=== PATIENT | female | born 1940 | race Caucasian/White ===

== ENCOUNTER 2018-08-11 15:58 | Inpatient (IN) | payer MEDICARE, OTHER ==
[2018-08-11] MEDS: CEFEPIME 2GM/50 ML (PMX) 50 ML IVPB (16:04)
[2018-08-11 16:27] LABS: ABNORMAL IP MESSAGE 1; HEMATOCRIT 24.9 % (37.0-47.0); HEMOGLOBIN 7.4 g/dl (12.0-16.0); MEAN CORPUSCULAR HEMOGLOBIN 26.8 pg (29.0-33.0); MEAN CORPUSCULAR HGB CONC 29.7 g/dl (32.0-37.0); MEAN CORPUSCULAR VOLUME 90.2 fl (82.0-101.0); MEAN PLATELET VOLUME 9.4 fl (7.4-10.4); NUCLEATED RED BLOOD CELLS% 0.1 /100WBC (0.0-0.0); PLATELET COUNT 242 10^3/UL (140-415); RED BLOOD COUNT 2.76 10^6/ul (4.20-5.40); RED CELL DISTRIBUTION WIDTH 18.6 % (11.5-14.5)
[2018-08-11 16:27] LABS: WHITE BLOOD COUNT 32.6 10^3/ul (4.8-10.8)
[2018-08-11 16:35] LABS: ADD MAN DIFF? YES; PATH REVIEW? YES; POSITIVE DIFF @See below
[2018-08-11 16:46] LABS: ANION GAP 8 (5-13); BLOOD UREA NITROGEN 24 mg/dl (7-20); CALCIUM 7.6 mg/dl (8.4-10.2); CARBON DIOXIDE 28 mmol/L (21-31); CHLORIDE 99 mmol/L (97-110); CREATININE 2.81 mg/dl (0.44-1.00); GLUCOSE 332 mg/dl (70-220); INR 1.08; PROTIME 14.1 Sec (11.9-14.9); PT RATIO 1.1; SODIUM 135 mmol/L (135-144)
[2018-08-11 16:47] LABS: PARTIAL THROMBOPLASTIN TIME 26.4 Sec (23.0-35.0)
[2018-08-11 16:47] LABS: LACTIC ACID 1.2 mmol/L (0.5-2.0)
[2018-08-11 16:49] LABS: AMMONIA < 9 umol/l (9-30)
[2018-08-11 17:12] LABS: TROPONIN-I 0.122 ng/ml (0.000-0.120)
[2018-08-11] MEDS: VANCOMYCIN 1 GM (PMX) 250 ML IVPB (17:16)
[2018-08-11 17:27] LABS: ADD UMIC YES; UR ASCORBIC ACID NEGATIVE (NEGATIVE); UR BACTERIA MANY /HPF (NONE SEEN); UR BILIRUBIN (Dip) NEGATIVE (NEGATIVE); UR BLOOD (Dip) 1+ mg/dL (NEGATIVE); UR CLARITY TURBID (CLEAR); UR COLOR YELLOW (YELLOW); UR GLUCOSE (Dip) NEGATIVE (NEGATIVE); UR KETONES (Dip) TRACE mg/dL (NEGATIVE); UR LEUKOCYTE ESTERASE (Dip) 2+ Leu/ul (NEGATIVE); UR NITRITE (Dip) NEGATIVE (NEGATIVE); UR RBC 10 /HPF (0-5); UR SPECIFIC GRAVITY (Dip) 1.023 (1.003-1.030); UR TOTAL PROTEIN (Dip) 2+ mg/dl (NEGATIVE); UR UROBILINOGEN (Dip) NEGATIVE (NEGATIVE); UR WBC > 182 /HPF (0-5)
[2018-08-11] MEDS ORDERED: ACETAMINOPHEN 325 MG TAB PO ×2 (17:30→18:00)
[2018-08-11] MEDS ORDERED: ONDANSETRON 4 MG INJ IV ×2 (17:30→18:00)
[2018-08-11 17:35] LABS: UR NONSQUAMOUS EPITHELIAL CELL 9 /HPF (NONE SEEN)
[2018-08-11] MEDS ORDERED: morphine 2 MG INJ IV (18:00)
[2018-08-11] MEDS ORDERED: ZOLPIDEM 5 MG TAB PO (18:00)
[2018-08-11] MEDS ORDERED: HYDROCODONE/APAP (5/325) TAB PO (18:00)
[2018-08-11] MEDS ORDERED: NACL 0.9% 3 ML SYG IV (18:00)
[2018-08-11 18:07] LABS: ANISOCYTOSIS 1+ (0-0); BAND NEUTROPHILS #M 2.2 10^3/ul (0.0-0.6); BAND NEUTROPHILS % (M) 7 % (0-4); HYPOCHROMASIA 1+ (0-0); LYMPHOCYTES #M 1.3 10^3/ul (0.8-2.9); LYMPHOCYTES % (M) 4 % (15-51); PLATELET ESTIMATE NORMAL; POIKILOCYTOSIS 1+ (0-0); POLYCHROMASIA 3+ (0-0); SEG NEUT #M 29.7 10^3/ul (1.6-7.5); SEGMENTED NEUTROPHILS (M) % 89 % (39-77); SMUDGE%M 1 % (0-0)
[2018-08-11] MEDS: ASPIRIN 300 MG SUPP PR (18:07)
[2018-08-11] MEDS: CEFTRIAXONE 1 GM/50 ML (PMX) 50 ML IVPB (19:31)
[2018-08-11] MEDS: SOD CHLORIDE 0.9% 1,000 ML IV (19:31)
[2018-08-11] MEDS: INSULIN ASPART [NOVOLOG] 3 ML PEN SC ×3 (20:36→21:17)
[2018-08-11] MEDS: INSULIN GLARGINE [LANTus] (100 UNITS/ML) SYG SC (21:16)
[2018-08-11] MEDS: ATORVASTATIN 80 MG TAB PO (21:22)
[2018-08-11] MEDS: POTASSIUM CHLORIDE (SR) 20 MEQ TAB PO (21:22)
[2018-08-11] MEDS: LACTULOSE 30ML CUP PO (21:22)
[2018-08-11] MEDS: POLYETHYLENE GLYCOL 17 GM PACKET PO (21:22)
[2018-08-11 22:50] LABS: LACTIC ACID 3.6 mmol/L (0.5-2.0)
[2018-08-11] MEDS: SOD CHLORIDE 0.9% 500 ML IV (23:11)
[2018-08-12 00:39] LABS: TROPONIN-I 0.114 ng/ml (0.000-0.120)
[2018-08-12] MEDS: ACCU-CHEK XX (02:03)
[2018-08-12] MEDS: LEVOTHYROXINE 50 MCG TAB PO (06:06)
[2018-08-12] MEDS: PANTOPRAZOLE (EC) 40 MG TAB PO (06:06)
[2018-08-12 06:13] LABS: ABNORMAL IP MESSAGE 1; HEMATOCRIT 22.6 % (37.0-47.0); MEAN CORPUSCULAR HEMOGLOBIN 26.4 pg (29.0-33.0); MEAN CORPUSCULAR HGB CONC 29.6 g/dl (32.0-37.0); MEAN PLATELET VOLUME 9.7 fl (7.4-10.4); NUCLEATED RED BLOOD CELLS% 0.1 /100WBC (0.0-0.0); PLATELET COUNT 255 10^3/UL (140-415); RED BLOOD COUNT 2.54 10^6/ul (4.20-5.40); RED CELL DISTRIBUTION WIDTH 18.1 % (11.5-14.5)
[2018-08-12 06:13] LABS: WHITE BLOOD COUNT 24.4 10^3/ul (4.8-10.8)
[2018-08-12 06:23] LABS: POSITIVE DIFF @See below
[2018-08-12 06:25] LABS: ADD MAN DIFF? YES; HEMOGLOBIN 6.7 g/dl (12.0-16.0)
[2018-08-12 06:48] LABS: LACTIC ACID 1.2 mmol/L (0.5-2.0)
[2018-08-12 06:50] LABS: ALANINE AMINOTRANSFERASE 12 IU/L (13-69); ALBUMIN 1.8 g/dl (3.3-4.9); ALKALINE PHOSPHATASE 110 IU/L (42-121); ANION GAP 7 (5-13); ASPARTATE AMINO TRANSFERASE 19 IU/L (15-46); BILIRUBIN,INDIRECT 0.1 mg/dl (0-1.1); BILIRUBIN,TOTAL 0.1 mg/dl (0.2-1.3); BLOOD UREA NITROGEN 28 mg/dl (7-20); CALCIUM 7.4 mg/dl (8.4-10.2); CARBON DIOXIDE 27 mmol/L (21-31); CHLORIDE 103 mmol/L (97-110); CREATININE 3.22 mg/dl (0.44-1.00); GLUCOSE 156 mg/dl (70-220); SODIUM 137 mmol/L (135-144); TOTAL PROTEIN 4.8 g/dl (6.1-8.1)
[2018-08-12 06:55] LABS: POTASSIUM 2.7 mmol/L (3.5-5.1)
[2018-08-12 06:59] LABS: TROPONIN-I 0.123 ng/ml (0.000-0.120)
[2018-08-12 07:02] LABS: ANISOCYTOSIS 1+ (0-0); BAND NEUTROPHILS #M 1.4 10^3/ul (0.0-0.6); BAND NEUTROPHILS % (M) 6 % (0-4); BURR CELLS 1+ (0-0); HYPOCHROMASIA 1+ (0-0); LYMPHOCYTES #M 0.4 10^3/ul (0.8-2.9); LYMPHOCYTES % (M) 2 % (15-51); MONOCYTE #M 0.4 10^3/ul (0.3-0.9); MONOCYTES % (M) 2 % (0-11); OVALOCYTES 1+ (0-0); PLATELET ESTIMATE NORMAL; PLATELET MORPHOLOGY COMMENT @See below; POIKILOCYTOSIS 2+ (0-0); POLYCHROMASIA 2+ (0-0); REACTIVE LYMPHOCYTES #M 0.2 10^3/ul (0.0-0.0); REACTIVE LYMPHOCYTES% (M) 1 % (0-0); SCHISTOCYTES 1+ (0-0); SEG NEUT #M 22.1 10^3/ul (1.6-7.5); SEGMENTED NEUTROPHILS (M) % 89 % (39-77); SMUDGE%M 68 % (0-0); SPHEROCYTES 1+ (0-0); TARGET CELLS 1+ (0-0)
[2018-08-12 07:55] LABS: HEMOGLOBIN A1C 6.4 % (0-5.9)
[2018-08-12] MEDS: INSULIN ASPART [NOVOLOG] 3 ML PEN SC ×7 (08:42→20:41)
[2018-08-12] MEDS: POLYETHYLENE GLYCOL 17 GM PACKET PO ×2 (09:00→22:34)
[2018-08-12] MEDS: VITAMIN B COMPLEX/VIT C CAP PO (09:00)
[2018-08-12] MEDS: MULTIVIT/CA CARB/B CMPLX/FA TAB PO (10:08)
[2018-08-12] MEDS: LACTULOSE 30ML CUP PO (10:08)
[2018-08-12] MEDS: ZINC SULFATE 220 MG CAP PO (10:08)
[2018-08-12] MEDS: POTASSIUM CHLORIDE (SR) 20 MEQ TAB PO ×2 (10:09→12:02)
[2018-08-12] MEDS: CLOPIDOGREL 75 MG TAB PO (10:09)
[2018-08-12] MEDS: ASPIRIN 81 MG TAB PO (10:10)
[2018-08-12] MEDS: FOLIC ACID 1 MG TAB PO (10:10)
[2018-08-12] MEDS: SOD CHLORIDE 0.9% 1,000 ML IV ×2 (10:14→20:39)
[2018-08-12] MEDS: POTASSIUM CHLORIDE 100 ML IVPB ×3 (10:16→15:10)
[2018-08-12 10:58] LABS: MAGNESIUM 2.1 mg/dl (1.7-2.5)
[2018-08-12 10:58] LABS: PHOSPHORUS 1.9 mg/dl (2.5-4.9)
[2018-08-12 12:00] LABS: LACTIC ACID 2.9 mmol/L (0.5-2.0)
[2018-08-12 13:07] LABS: TROPONIN-I 0.101 ng/ml (0.000-0.120)
[2018-08-12] MEDS: EPOETIN 10000 UNITS/1 ML INJ (ESRD) SC (16:40)
[2018-08-12 17:34] LABS: HEPATITIS B SURFACE ANTIGEN NEGATIVE (NEGATIVE)
[2018-08-12] MEDS: CEFTRIAXONE 1 GM/50 ML (PMX) 50 ML IVPB (18:04)
[2018-08-12 19:50] LABS: IMMEDIATE SPIN CROSSMATCH 1 1
[2018-08-12] MEDS: BALSAM PERU/CASTOR OIL 60 GM TUBE TOP (20:41)
[2018-08-12] MEDS: INSULIN GLARGINE [LANTus] (100 UNITS/ML) SYG SC (21:10)
[2018-08-12] MEDS: ALBUMIN HUMAN 25% 100 ML IV (21:56)
[2018-08-12] MEDS: ATORVASTATIN 80 MG TAB PO (22:34)
[2018-08-13] MEDS: ACCU-CHEK XX (01:55)
[2018-08-13] MEDS: LEVOTHYROXINE 50 MCG TAB PO (06:14)
[2018-08-13] MEDS: PANTOPRAZOLE (EC) 40 MG TAB PO (06:14)
[2018-08-13 06:19] LABS: ADD MAN DIFF? NO
[2018-08-13 06:30] LABS: BASOPHIL # 0.1 10^3/ul (0.0-0.1); BASOPHILS % 0.3 % (0.0-2.0); EOSINOPHILS # 0.3 10^3/ul (0.0-0.5); EOSINOPHILS % 1.7 % (0.0-7.0); HEMATOCRIT 26.3 % (37.0-47.0); HEMOGLOBIN 8.2 g/dl (12.0-16.0); LYMPHOCYTES # 1.6 10^3/ul (0.8-2.9); MEAN CORPUSCULAR HEMOGLOBIN 26.6 pg (29.0-33.0); MEAN CORPUSCULAR HGB CONC 31.2 g/dl (32.0-37.0); MEAN CORPUSCULAR VOLUME 85.4 fl (82.0-101.0); MEAN PLATELET VOLUME 10.6 fl (7.4-10.4); MONOCYTE # 0.9 10^3/ul (0.3-0.9); MONOCYTES % 5.8 % (0.0-11.0); NEUTROPHIL # 12.8 10^3/ul (1.6-7.5); NEUTROPHILS % 81.7 % (39.0-77.0); NUCLEATED RED BLOOD CELLS% 0.3 /100WBC (0.0-0.0); PLATELET COUNT 169 10^3/UL (140-415); RED BLOOD COUNT 3.08 10^6/ul (4.20-5.40); RED CELL DISTRIBUTION WIDTH 18.4 % (11.5-14.5)
[2018-08-13 06:30] LABS: WHITE BLOOD COUNT 15.6 10^3/ul (4.8-10.8)
[2018-08-13 06:55] LABS: ANION GAP 5 (5-13); BLOOD UREA NITROGEN 17 mg/dl (7-20); CALCIUM 7.1 mg/dl (8.4-10.2); CARBON DIOXIDE 32 mmol/L (21-31); CHLORIDE 102 mmol/L (97-110); CREATININE 1.83 mg/dl (0.44-1.00); GLUCOSE 85 mg/dl (70-220); POTASSIUM 3.3 mmol/L (3.5-5.1); SODIUM 139 mmol/L (135-144)
[2018-08-13] MEDS: INSULIN ASPART [NOVOLOG] 3 ML PEN SC ×5 (08:00→20:45)
[2018-08-13] MEDS: POTASSIUM CHLORIDE 100 ML IVPB ×3 (08:11→12:14)
[2018-08-13] MEDS: ZINC SULFATE 220 MG CAP PO (08:12)
[2018-08-13] MEDS: ASPIRIN 81 MG TAB PO (08:12)
[2018-08-13] MEDS: VITAMIN B COMPLEX/VIT C CAP PO (08:12)
[2018-08-13] MEDS: FOLIC ACID 1 MG TAB PO (08:12)
[2018-08-13] MEDS: MULTIVIT/CA CARB/B CMPLX/FA TAB PO (08:12)
[2018-08-13] MEDS: CLOPIDOGREL 75 MG TAB PO (08:12)
[2018-08-13] MEDS: BALSAM PERU/CASTOR OIL 60 GM TUBE TOP ×2 (08:31→20:14)
[2018-08-13] MEDS: POLYETHYLENE GLYCOL 17 GM PACKET PO ×2 (08:31→20:13)
[2018-08-13] MEDS: SOD CHLORIDE 0.9% 1,000 ML IV ×2 (10:04→23:18)
[2018-08-13] MEDS ORDERED: GENTAMICIN IV PER PHARMACY XX (15:30)
[2018-08-13] MEDS: GENTAMICIN 100 MG/50 ML NS IVPB (18:36)
[2018-08-13] MEDS: ATORVASTATIN 80 MG TAB PO (20:13)
[2018-08-13] MEDS: INSULIN GLARGINE [LANTus] (100 UNITS/ML) SYG SC (20:48)
[2018-08-14] MEDS: ACCU-CHEK XX (01:54)
[2018-08-14 05:39] LABS: ADD MAN DIFF? NO
[2018-08-14 05:43] LABS: BASOPHILS % 0.1 % (0.0-2.0); EOSINOPHILS # 0.3 10^3/ul (0.0-0.5); EOSINOPHILS % 1.9 % (0.0-7.0); HEMATOCRIT 25.9 % (37.0-47.0); LYMPHOCYTES # 2.1 10^3/ul (0.8-2.9); LYMPHOCYTES % 14.8 % (15.0-51.0); MEAN CORPUSCULAR HEMOGLOBIN 26.6 pg (29.0-33.0); MEAN CORPUSCULAR HGB CONC 30.9 g/dl (32.0-37.0); MEAN PLATELET VOLUME 10.2 fl (7.4-10.4); MONOCYTE # 0.8 10^3/ul (0.3-0.9); MONOCYTES % 5.9 % (0.0-11.0); NEUTROPHIL # 10.8 10^3/ul (1.6-7.5); NEUTROPHILS % 76.7 % (39.0-77.0); NUCLEATED RED BLOOD CELLS% 0.1 /100WBC (0.0-0.0); PLATELET COUNT 202 10^3/UL (140-415); RED BLOOD COUNT 3.01 10^6/ul (4.20-5.40); RED CELL DISTRIBUTION WIDTH 18.7 % (11.5-14.5)
[2018-08-14] MEDS: SOD CHLORIDE 0.9% 1,000 ML IV (06:04)
[2018-08-14] MEDS: PANTOPRAZOLE (EC) 40 MG TAB PO (06:04)
[2018-08-14] MEDS: LEVOTHYROXINE 50 MCG TAB PO (06:04)
[2018-08-14 06:19] LABS: ANION GAP 6 (5-13); BLOOD UREA NITROGEN 26 mg/dl (7-20); CALCIUM 6.8 mg/dl (8.4-10.2); CARBON DIOXIDE 27 mmol/L (21-31); CHLORIDE 104 mmol/L (97-110); GLUCOSE 72 mg/dl (70-220); SODIUM 137 mmol/L (135-144)
[2018-08-14] MEDS ORDERED: DEXTROSE 50% 50 ML SYRINGE (07:58)
[2018-08-14] MEDS: INSULIN ASPART [NOVOLOG] 3 ML PEN SC ×4 (08:00→21:00)
[2018-08-14] MEDS: DEXTROSE 50% 50 ML SYRINGE IV (08:43)
[2018-08-14] MEDS: DEXTROSE 5%-0.9% NACL 1,000 ML IV (08:44)
[2018-08-14] MEDS: MULTIVIT/CA CARB/B CMPLX/FA TAB PO (09:37)
[2018-08-14] MEDS: POLYETHYLENE GLYCOL 17 GM PACKET PO ×2 (09:37→22:00)
[2018-08-14] MEDS: VITAMIN B COMPLEX/VIT C CAP PO (09:37)
[2018-08-14] MEDS: CLOPIDOGREL 75 MG TAB PO (09:38)
[2018-08-14] MEDS: FOLIC ACID 1 MG TAB PO (09:38)
[2018-08-14] MEDS: ZINC SULFATE 220 MG CAP PO (09:38)
[2018-08-14] MEDS: ASPIRIN 81 MG TAB PO (09:38)
[2018-08-14] MEDS: BALSAM PERU/CASTOR OIL 60 GM TUBE TOP ×2 (09:39→22:01)
[2018-08-14] MEDS ORDERED: [UNRECOGNIZED DRUG - REMARK] XX (15:30)
[2018-08-14] MEDS: HEPARIN 1000 UNITS/ML 10 ML INJ CATHETER (20:17)
[2018-08-14] MEDS: ATORVASTATIN 80 MG TAB PO (22:00)
[2018-08-14] MEDS: GENTAMICIN 70 MG in SOD CHLORIDE 0.9% 50 ML IVPB (22:02)
[2018-08-14] MEDS: INSULIN GLARGINE [LANTus] (100 UNITS/ML) SYG SC (22:03)
[2018-08-15] MEDS: ACCU-CHEK XX (02:00)
[2018-08-15] MEDS ORDERED: ALBUTEROL/IPRATROPIUM (NEB) 3 ML AMP HHN (02:00)
[2018-08-15] MEDS ORDERED: GLUCOSE GEL 15 GRAM TUBE BUCCAL (02:30)
[2018-08-15] MEDS ORDERED: GLUCAGON 1 MG INJ IM (02:30)
[2018-08-15] MEDS ORDERED: GLUCOSE GEL 15 GRAM TUBE PO ×2 (02:30)
[2018-08-15] MEDS ORDERED: DEXTROSE 50% 50 ML SYRINGE IV (02:30)
[2018-08-15 02:56] LABS: AADO2 Arterial 56.8 mmHg (7.0-24.0); Allen Test ACCEPTAB; Arterial Base Excess 4.3 mmol/L (-3.0-3); Arterial Blood Gas Oxygen Sat 98.7 mmHG (95.0-100.0); Arterial Fraction of Oxyhgb 97.4 % (93.0-99.0); Arterial HCO3 27.5 mmol/L (22.0-26.0); Arterial MetHb 0.3 % (0.0-1.5); Arterial pCO2 34.5 mmhg (35-45); MODE NASAL CANNULA; Site Right Radial
[2018-08-15] MEDS: DEXTROSE 50% 50 ML SYRINGE IV (03:32)
[2018-08-15] MEDS: FUROSEMIDE 40 MG INJ IV ×2 (03:52→18:22)
[2018-08-15] MEDS ORDERED: LEVALBUTEROL (NEB) 1.25 MG/0.5 ML AMP HHN (04:00)
[2018-08-15 04:04] LABS: ADD MAN DIFF? NO
[2018-08-15 04:13] LABS: BASOPHIL # 0.1 10^3/ul (0.0-0.1); BASOPHILS % 0.3 % (0.0-2.0); EOSINOPHILS # 0.2 10^3/ul (0.0-0.5); EOSINOPHILS % 1.6 % (0.0-7.0); HEMATOCRIT 25.8 % (37.0-47.0); HEMOGLOBIN 7.9 g/dl (12.0-16.0); LYMPHOCYTES # 1.9 10^3/ul (0.8-2.9); LYMPHOCYTES % 12.8 % (15.0-51.0); MEAN CORPUSCULAR HEMOGLOBIN 26.7 pg (29.0-33.0); MEAN CORPUSCULAR HGB CONC 30.6 g/dl (32.0-37.0); MEAN CORPUSCULAR VOLUME 87.2 fl (82.0-101.0); MEAN PLATELET VOLUME 10.2 fl (7.4-10.4); MONOCYTE # 0.9 10^3/ul (0.3-0.9); MONOCYTES % 5.9 % (0.0-11.0); NEUTROPHIL # 11.4 10^3/ul (1.6-7.5); NEUTROPHILS % 78.7 % (39.0-77.0); NUCLEATED RED BLOOD CELLS% 0.2 /100WBC (0.0-0.0); PLATELET COUNT 201 10^3/UL (140-415); RED BLOOD COUNT 2.96 10^6/ul (4.20-5.40); RED CELL DISTRIBUTION WIDTH 18.6 % (11.5-14.5)
[2018-08-15 04:13] LABS: WHITE BLOOD COUNT 14.5 10^3/ul (4.8-10.8)
[2018-08-15] MEDS: METOLAZONE 2.5 MG TAB PO (04:39)
[2018-08-15] MEDS: PANTOPRAZOLE (EC) 40 MG TAB PO (06:25)
[2018-08-15] MEDS: LEVOTHYROXINE 50 MCG TAB PO (06:25)
[2018-08-15] MEDS: INSULIN ASPART [NOVOLOG] 3 ML PEN SC ×4 (08:00→21:23)
[2018-08-15] MEDS: CLOPIDOGREL 75 MG TAB PO (09:00)
[2018-08-15] MEDS: VITAMIN B COMPLEX/VIT C CAP PO (09:00)
[2018-08-15] MEDS: ASPIRIN 81 MG TAB PO (09:00)
[2018-08-15] MEDS: MULTIVIT/CA CARB/B CMPLX/FA TAB PO (09:00)
[2018-08-15] MEDS: POLYETHYLENE GLYCOL 17 GM PACKET PO ×2 (09:00→20:53)
[2018-08-15] MEDS: BALSAM PERU/CASTOR OIL 60 GM TUBE TOP ×2 (09:00→20:53)
[2018-08-15] MEDS: ZINC SULFATE 220 MG CAP PO (09:00)
[2018-08-15] MEDS: FOLIC ACID 1 MG TAB PO (09:00)
[2018-08-15] MEDS: GENTAMICIN 70 MG in SOD CHLORIDE 0.9% 50 ML IVPB (16:44)
[2018-08-15] MEDS: EPOETIN 10000 UNITS/1 ML INJ (ESRD) SC (16:46)
[2018-08-15] MEDS ORDERED: FUROSEMIDE 100 MG INJ IV (18:00)
[2018-08-15] MEDS: ATORVASTATIN 80 MG TAB PO (21:05)
[2018-08-16] MEDS: ACCU-CHEK XX (02:00)
[2018-08-16] MEDS: FUROSEMIDE 40 MG INJ IV (05:40)
[2018-08-16 06:05] LABS: ADD MAN DIFF? NO
[2018-08-16 06:12] LABS: WHITE BLOOD COUNT 15.5 10^3/ul (4.8-10.8)
[2018-08-16 06:13] LABS: BASOPHIL # 0.1 10^3/ul (0.0-0.1); BASOPHILS % 0.3 % (0.0-2.0); EOSINOPHILS # 0.3 10^3/ul (0.0-0.5); EOSINOPHILS % 1.6 % (0.0-7.0); HEMOGLOBIN 7.8 g/dl (12.0-16.0); LYMPHOCYTES # 2.6 10^3/ul (0.8-2.9); LYMPHOCYTES % 16.6 % (15.0-51.0); MEAN CORPUSCULAR HEMOGLOBIN 26.3 pg (29.0-33.0); MEAN CORPUSCULAR VOLUME 87.5 fl (82.0-101.0); MEAN PLATELET VOLUME 10.1 fl (7.4-10.4); MONOCYTES % 6.3 % (0.0-11.0); NEUTROPHIL # 11.5 10^3/ul (1.6-7.5); NEUTROPHILS % 74.5 % (39.0-77.0); NUCLEATED RED BLOOD CELLS% 0.2 /100WBC (0.0-0.0); PLATELET COUNT 223 10^3/UL (140-415); RED BLOOD COUNT 2.97 10^6/ul (4.20-5.40); RED CELL DISTRIBUTION WIDTH 18.5 % (11.5-14.5)
[2018-08-16] MEDS: LEVOTHYROXINE 50 MCG TAB PO (06:20)
[2018-08-16] MEDS: PANTOPRAZOLE (EC) 40 MG TAB PO (06:20)
[2018-08-16 06:51] LABS: ANION GAP 4 (5-13); BLOOD UREA NITROGEN 15 mg/dl (7-20); CALCIUM 7.3 mg/dl (8.4-10.2); CARBON DIOXIDE 30 mmol/L (21-31); CHLORIDE 99 mmol/L (97-110); CREATININE 1.79 mg/dl (0.44-1.00); GLUCOSE 121 mg/dl (70-220); MAGNESIUM 1.7 mg/dl (1.7-2.5); PHOSPHORUS 1.5 mg/dl (2.5-4.9); POTASSIUM 3.9 mmol/L (3.5-5.1); SODIUM 133 mmol/L (135-144)
[2018-08-16] MEDS: INSULIN ASPART [NOVOLOG] 3 ML PEN SC (08:00)
[2018-08-16] MEDS: NEUTRA-PHOS 250 MG PACKET PO (08:30)
[2018-08-16] MEDS: FOLIC ACID 1 MG TAB PO (10:02)
[2018-08-16] MEDS: CLOPIDOGREL 75 MG TAB PO (10:02)
[2018-08-16] MEDS: VITAMIN B COMPLEX/VIT C CAP PO (10:02)
[2018-08-16] MEDS: MULTIVIT/CA CARB/B CMPLX/FA TAB PO (10:02)
[2018-08-16] MEDS: ASPIRIN 81 MG TAB PO (10:02)
[2018-08-16] MEDS: BALSAM PERU/CASTOR OIL 60 GM TUBE TOP ×2 (10:03→21:33)
[2018-08-16] MEDS: POLYETHYLENE GLYCOL 17 GM PACKET PO ×2 (10:03→21:32)
[2018-08-16] MEDS: ZINC SULFATE 220 MG CAP PO (10:03)
[2018-08-16] MEDS ORDERED: morphine LIQ (10 MG/5 ML) CUP PO (18:00)
[2018-08-16] MEDS: ATORVASTATIN 80 MG TAB PO (21:32)
[2018-08-17 05:37] LABS: ADD MAN DIFF? NO
[2018-08-17 05:41] LABS: WHITE BLOOD COUNT 14.4 10^3/ul (4.8-10.8)
[2018-08-17 05:41] LABS: BASOPHIL # 0.1 10^3/ul (0.0-0.1); BASOPHILS % 0.3 % (0.0-2.0); EOSINOPHILS # 0.3 10^3/ul (0.0-0.5); EOSINOPHILS % 1.8 % (0.0-7.0); HEMATOCRIT 26.4 % (37.0-47.0); HEMOGLOBIN 7.9 g/dl (12.0-16.0); LYMPHOCYTES # 2.1 10^3/ul (0.8-2.9); LYMPHOCYTES % 14.9 % (15.0-51.0); MEAN CORPUSCULAR HEMOGLOBIN 26.8 pg (29.0-33.0); MEAN CORPUSCULAR HGB CONC 29.9 g/dl (32.0-37.0); MEAN CORPUSCULAR VOLUME 89.5 fl (82.0-101.0); MONOCYTE # 0.7 10^3/ul (0.3-0.9); MONOCYTES % 4.9 % (0.0-11.0); NEUTROPHIL # 11.1 10^3/ul (1.6-7.5); NEUTROPHILS % 77.5 % (39.0-77.0); PLATELET COUNT 249 10^3/UL (140-415); RED BLOOD COUNT 2.95 10^6/ul (4.20-5.40); RED CELL DISTRIBUTION WIDTH 18.5 % (11.5-14.5)
[2018-08-17 06:27] LABS: ANION GAP 7 (5-13); BLOOD UREA NITROGEN 26 mg/dl (7-20); CALCIUM 7.4 mg/dl (8.4-10.2); CARBON DIOXIDE 28 mmol/L (21-31); CHLORIDE 99 mmol/L (97-110); CREATININE 2.45 mg/dl (0.44-1.00); GLUCOSE 199 mg/dl (70-220); MAGNESIUM 1.8 mg/dl (1.7-2.5); PHOSPHORUS 3.2 mg/dl (2.5-4.9); POTASSIUM 3.6 mmol/L (3.5-5.1); SODIUM 134 mmol/L (135-144)
[2018-08-17] MEDS: LEVOTHYROXINE 50 MCG TAB PO (06:29)
[2018-08-17] MEDS: PANTOPRAZOLE (EC) 40 MG TAB PO (06:29)
[2018-08-17] MEDS: MULTIVIT/CA CARB/B CMPLX/FA TAB PO (08:22)
[2018-08-17] MEDS: ASPIRIN 81 MG TAB PO (08:23)
[2018-08-17] MEDS: FOLIC ACID 1 MG TAB PO (08:23)
[2018-08-17] MEDS: ZINC SULFATE 220 MG CAP PO (08:34)
[2018-08-17] MEDS: VITAMIN B COMPLEX/VIT C CAP PO (08:34)
[2018-08-17] MEDS: BALSAM PERU/CASTOR OIL 60 GM TUBE TOP ×2 (08:35→20:58)
[2018-08-17] MEDS: POLYETHYLENE GLYCOL 17 GM PACKET PO ×2 (08:35→20:58)
[2018-08-17] MEDS: CLOPIDOGREL 75 MG TAB PO (08:37)
[2018-08-17 08:55] LABS: IRON 19 ug/dl (35-150)
[2018-08-17 09:04] LABS: % IRON SATURATION 16 % SAT (22-52); TOTAL IRON BINDING CAPACITY 117 ug/dl (241-421)
[2018-08-17] MEDS: GENTAMICIN 70 MG in SOD CHLORIDE 0.9% 50 ML IVPB (17:48)
[2018-08-17] MEDS: EPOETIN 10000 UNITS/1 ML INJ (ESRD) SC (17:58)
[2018-08-17] MEDS: ATORVASTATIN 80 MG TAB PO (20:58)
[2018-08-18] MEDS: LEVOTHYROXINE 50 MCG TAB PO (05:50)
[2018-08-18] MEDS: PANTOPRAZOLE (EC) 40 MG TAB PO (05:50)
[2018-08-18] MEDS: MULTIVIT/CA CARB/B CMPLX/FA TAB PO (09:00)
[2018-08-18] MEDS: CLOPIDOGREL 75 MG TAB PO (09:00)
[2018-08-18] MEDS: ZINC SULFATE 220 MG CAP PO (09:00)
[2018-08-18] MEDS: FOLIC ACID 1 MG TAB PO (09:00)
[2018-08-18] MEDS: ASPIRIN 81 MG TAB PO (09:00)
[2018-08-18] MEDS: VITAMIN B COMPLEX/VIT C CAP PO (09:00)
[2018-08-18] MEDS: POLYETHYLENE GLYCOL 17 GM PACKET PO ×2 (09:00→20:52)
[2018-08-18] MEDS: BALSAM PERU/CASTOR OIL 60 GM TUBE TOP ×2 (10:05→20:52)
[2018-08-18] MEDS ORDERED: LIDOCAINE 1% (MDV) 20 ML INJ (11:45)
[2018-08-18] MEDS: SOD FERRIC GLUC COMPLX 125 MG in SOD CHLORIDE 0.9% 100 ML IVPB (17:34)
[2018-08-18] MEDS: ATORVASTATIN 80 MG TAB PO (20:52)
[2018-08-19] MEDS: PANTOPRAZOLE (EC) 40 MG TAB PO (06:22)
[2018-08-19] MEDS: LEVOTHYROXINE 50 MCG TAB PO (06:22)
[2018-08-19] MEDS: ZINC SULFATE 220 MG CAP PO (09:22)
[2018-08-19] MEDS: VITAMIN B COMPLEX/VIT C CAP PO (09:22)
[2018-08-19] MEDS: MULTIVIT/CA CARB/B CMPLX/FA TAB PO (09:22)
[2018-08-19] MEDS: POLYETHYLENE GLYCOL 17 GM PACKET PO ×2 (09:22→20:27)
[2018-08-19] MEDS: ASPIRIN 81 MG TAB PO (09:22)
[2018-08-19] MEDS: CLOPIDOGREL 75 MG TAB PO (09:22)
[2018-08-19] MEDS: FOLIC ACID 1 MG TAB PO (09:22)
[2018-08-19] MEDS: BALSAM PERU/CASTOR OIL 60 GM TUBE TOP ×2 (09:23→20:28)
[2018-08-19] MEDS: SOD FERRIC GLUC COMPLX 125 MG in SOD CHLORIDE 0.9% 100 ML IVPB (16:10)
[2018-08-19] MEDS: EPOETIN 10000 UNITS/1 ML INJ (ESRD) SC (17:37)
[2018-08-19 19:25] LABS: CK-MB 2.34 ng/ml (0.0-2.4); CREATINE KINASE < 20 IU/L (23-200); TROPONIN-I 0.026 ng/ml (0.000-0.120)
[2018-08-19] MEDS: ATORVASTATIN 80 MG TAB PO (20:27)
[2018-08-20 02:09] LABS: CK-MB 2.31 ng/ml (0.0-2.4); TROPONIN-I 0.023 ng/ml (0.000-0.120)
[2018-08-20 02:10] LABS: CREATINE KINASE < 20 IU/L (23-200)
[2018-08-20 06:02] LABS: CHOL/HDL RATIO 3.7 RATIO; HDL CHOLESTEROL 22 mg/dl (33-92); LDL CHOLESTEROL,CALCULATED 42 mg/dl; TRIGLYCERIDES 92 mg/dl (0-149)
[2018-08-20 06:02] LABS: CHOLESTEROL 82 mg/dl (100-200)
[2018-08-20] MEDS: LEVOTHYROXINE 50 MCG TAB PO (06:06)
[2018-08-20] MEDS: PANTOPRAZOLE (EC) 40 MG TAB PO (06:06)
[2018-08-20 06:15] LABS: CREATINE KINASE < 20 IU/L (23-200)
[2018-08-20 06:16] LABS: TROPONIN-I 0.021 ng/ml (0.000-0.120)
[2018-08-20] MEDS: MULTIVIT/CA CARB/B CMPLX/FA TAB PO (08:37)
[2018-08-20] MEDS: VITAMIN B COMPLEX/VIT C CAP PO (08:38)
[2018-08-20] MEDS: ASPIRIN 81 MG TAB PO (08:38)
[2018-08-20] MEDS: CLOPIDOGREL 75 MG TAB PO (08:38)
[2018-08-20] MEDS: FOLIC ACID 1 MG TAB PO (08:39)
[2018-08-20] MEDS: BALSAM PERU/CASTOR OIL 60 GM TUBE TOP ×2 (08:40→20:52)
[2018-08-20] MEDS: POLYETHYLENE GLYCOL 17 GM PACKET PO ×2 (08:40→20:52)
[2018-08-20] MEDS: ZINC SULFATE 220 MG CAP PO (08:40)
[2018-08-20] MEDS: SOD FERRIC GLUC COMPLX 125 MG in SOD CHLORIDE 0.9% 100 ML IVPB (16:34)
[2018-08-20] MEDS: ATORVASTATIN 80 MG TAB PO (20:52)
[2018-08-21] MEDS: LEVOTHYROXINE 50 MCG TAB PO (05:33)
[2018-08-21] MEDS: PANTOPRAZOLE (EC) 40 MG TAB PO (05:33)
[2018-08-21] MEDS: VITAMIN B COMPLEX/VIT C CAP PO (08:54)
[2018-08-21] MEDS: MULTIVIT/CA CARB/B CMPLX/FA TAB PO (08:54)
[2018-08-21] MEDS: POLYETHYLENE GLYCOL 17 GM PACKET PO ×2 (08:54→21:28)
[2018-08-21] MEDS: FOLIC ACID 1 MG TAB PO (08:55)
[2018-08-21] MEDS: ASPIRIN 81 MG TAB PO (08:55)
[2018-08-21] MEDS: CLOPIDOGREL 75 MG TAB PO (08:55)
[2018-08-21] MEDS: ZINC SULFATE 220 MG CAP PO (08:55)
[2018-08-21] MEDS: BALSAM PERU/CASTOR OIL 60 GM TUBE TOP ×2 (08:55→21:29)
[2018-08-21] MEDS: SOD FERRIC GLUC COMPLX 125 MG in SOD CHLORIDE 0.9% 100 ML IVPB (16:46)
[2018-08-21] MEDS: ATORVASTATIN 80 MG TAB PO (21:28)
[2018-08-22 05:42] LABS: ADD MAN DIFF? NO
[2018-08-22 05:45] LABS: BASOPHILS % 0.3 % (0.0-2.0); EOSINOPHILS # 0.2 10^3/ul (0.0-0.5); EOSINOPHILS % 1.4 % (0.0-7.0); HEMATOCRIT 25.3 % (37.0-47.0); HEMOGLOBIN 7.6 g/dl (12.0-16.0); LYMPHOCYTES # 2.2 10^3/ul (0.8-2.9); LYMPHOCYTES % 16.8 % (15.0-51.0); MEAN CORPUSCULAR HEMOGLOBIN 26.7 pg (29.0-33.0); MEAN CORPUSCULAR VOLUME 88.8 fl (82.0-101.0); MEAN PLATELET VOLUME 9.4 fl (7.4-10.4); MONOCYTE # 0.8 10^3/ul (0.3-0.9); MONOCYTES % 5.9 % (0.0-11.0); NEUTROPHILS % 74.8 % (39.0-77.0); PLATELET COUNT 393 10^3/UL (140-415); RED BLOOD COUNT 2.85 10^6/ul (4.20-5.40); RED CELL DISTRIBUTION WIDTH 19.4 % (11.5-14.5)
[2018-08-22 05:45] LABS: WHITE BLOOD COUNT 13.3 10^3/ul (4.8-10.8)
[2018-08-22] MEDS: LEVOTHYROXINE 50 MCG TAB PO (06:12)
[2018-08-22] MEDS: PANTOPRAZOLE (EC) 40 MG TAB PO (06:12)
[2018-08-22 06:55] LABS: ANION GAP 11 (5-13); BLOOD UREA NITROGEN 45 mg/dl (7-20); CALCIUM 7.6 mg/dl (8.4-10.2); CARBON DIOXIDE 24 mmol/L (21-31); CHLORIDE 98 mmol/L (97-110); CREATININE 4.88 mg/dl (0.44-1.00); GLUCOSE 359 mg/dl (70-220); MAGNESIUM 2.1 mg/dl (1.7-2.5); PHOSPHORUS 4.8 mg/dl (2.5-4.9); POTASSIUM 4.1 mmol/L (3.5-5.1); SODIUM 133 mmol/L (135-144)
[2018-08-22] MEDS: ASPIRIN 81 MG TAB PO (09:17)
[2018-08-22] MEDS: VITAMIN B COMPLEX/VIT C CAP PO (09:18)
[2018-08-22] MEDS: MULTIVIT/CA CARB/B CMPLX/FA TAB PO (09:18)
[2018-08-22] MEDS: FOLIC ACID 1 MG TAB PO (09:18)
[2018-08-22] MEDS: POLYETHYLENE GLYCOL 17 GM PACKET PO ×2 (09:18→21:00)
[2018-08-22] MEDS: CLOPIDOGREL 75 MG TAB PO (09:18)
[2018-08-22] MEDS: ZINC SULFATE 220 MG CAP PO (09:18)
[2018-08-22] MEDS: BALSAM PERU/CASTOR OIL 60 GM TUBE TOP ×2 (09:19→21:44)
[2018-08-22] MEDS: SOD FERRIC GLUC COMPLX 125 MG in SOD CHLORIDE 0.9% 100 ML IVPB (16:55)
[2018-08-22] MEDS: EPOETIN 10000 UNITS/1 ML INJ (ESRD) SC (16:56)
[2018-08-22] MEDS: ATORVASTATIN 80 MG TAB PO (21:00)
[2018-08-23] MEDS: ALBUMIN HUMAN 25% 100 ML IV (03:12)
[2018-08-23] MEDS: GENTAMICIN 70 MG in SOD CHLORIDE 0.9% 50 ML IVPB (05:54)
[2018-08-23] MEDS: PANTOPRAZOLE (EC) 40 MG TAB PO (06:05)
[2018-08-23] MEDS: LEVOTHYROXINE 50 MCG TAB PO (06:05)
[2018-08-23 06:26] LABS: ADD MAN DIFF? NO
[2018-08-23 06:56] LABS: BASOPHILS % 0.3 % (0.0-2.0); EOSINOPHILS # 0.1 10^3/ul (0.0-0.5); EOSINOPHILS % 0.8 % (0.0-7.0); HEMATOCRIT 27.3 % (37.0-47.0); HEMOGLOBIN 8.3 g/dl (12.0-16.0); LYMPHOCYTES # 1.6 10^3/ul (0.8-2.9); LYMPHOCYTES % 13.6 % (15.0-51.0); MEAN CORPUSCULAR HEMOGLOBIN 26.9 pg (29.0-33.0); MEAN CORPUSCULAR HGB CONC 30.4 g/dl (32.0-37.0); MEAN CORPUSCULAR VOLUME 88.3 fl (82.0-101.0); MEAN PLATELET VOLUME 9.9 fl (7.4-10.4); MONOCYTE # 0.7 10^3/ul (0.3-0.9); MONOCYTES % 5.7 % (0.0-11.0); NEUTROPHIL # 9.3 10^3/ul (1.6-7.5); NEUTROPHILS % 78.5 % (39.0-77.0); NUCLEATED RED BLOOD CELLS # 0.1 10^3/ul (0.0-0.0); NUCLEATED RED BLOOD CELLS% 0.4 /100WBC (0.0-0.0); PLATELET COUNT 353 10^3/UL (140-415); RED BLOOD COUNT 3.09 10^6/ul (4.20-5.40); RED CELL DISTRIBUTION WIDTH 19.7 % (11.5-14.5)
[2018-08-23 06:56] LABS: WHITE BLOOD COUNT 11.9 10^3/ul (4.8-10.8)
[2018-08-23 07:21] LABS: ANION GAP 14 (5-13); BLOOD UREA NITROGEN 16 mg/dl (7-20); CALCIUM 8.3 mg/dl (8.4-10.2); CARBON DIOXIDE 26 mmol/L (21-31); CHLORIDE 100 mmol/L (97-110); CREATININE 2.15 mg/dl (0.44-1.00); GLUCOSE 125 mg/dl (70-220); PHOSPHORUS 2.9 mg/dl (2.5-4.9); POTASSIUM 3.7 mmol/L (3.5-5.1); SODIUM 140 mmol/L (135-144)
[2018-08-23] MEDS: MULTIVIT/CA CARB/B CMPLX/FA TAB PO (09:33)
[2018-08-23] MEDS: VITAMIN B COMPLEX/VIT C CAP PO (09:33)
[2018-08-23] MEDS: ZINC SULFATE 220 MG CAP PO (09:33)
[2018-08-23] MEDS: FOLIC ACID 1 MG TAB PO (09:34)
[2018-08-23] MEDS: ASPIRIN 81 MG TAB PO (09:34)
[2018-08-23] MEDS: POLYETHYLENE GLYCOL 17 GM PACKET PO ×2 (09:34→20:59)
[2018-08-23] MEDS: CLOPIDOGREL 75 MG TAB PO (09:34)
[2018-08-23] MEDS: BALSAM PERU/CASTOR OIL 60 GM TUBE TOP ×2 (09:35→21:00)
[2018-08-23] MEDS: ATORVASTATIN 80 MG TAB PO (20:59)
[2018-08-24] MEDS: PANTOPRAZOLE (EC) 40 MG TAB PO (06:29)
[2018-08-24] MEDS: LEVOTHYROXINE 50 MCG TAB PO (06:29)
[2018-08-24] MEDS: POLYETHYLENE GLYCOL 17 GM PACKET PO ×2 (09:00→21:02)
[2018-08-24] MEDS: FOLIC ACID 1 MG TAB PO (09:22)
[2018-08-24] MEDS: ASPIRIN 81 MG TAB PO (09:23)
[2018-08-24] MEDS: MULTIVIT/CA CARB/B CMPLX/FA TAB PO (09:23)
[2018-08-24] MEDS: VITAMIN B COMPLEX/VIT C CAP PO (09:23)
[2018-08-24] MEDS: ZINC SULFATE 220 MG CAP PO (09:23)
[2018-08-24] MEDS: CLOPIDOGREL 75 MG TAB PO (09:23)
[2018-08-24] MEDS: BALSAM PERU/CASTOR OIL 60 GM TUBE TOP ×2 (09:34→21:03)
[2018-08-24] MEDS: EPOETIN 10000 UNITS/1 ML INJ (ESRD) SC (18:22)
[2018-08-24] MEDS: GENTAMICIN 70 MG in SOD CHLORIDE 0.9% 50 ML IVPB (19:42)
[2018-08-24] MEDS: ATORVASTATIN 80 MG TAB PO (21:02)
[2018-08-25] MEDS: LEVOTHYROXINE 50 MCG TAB PO (06:34)
[2018-08-25] MEDS: PANTOPRAZOLE (EC) 40 MG TAB PO (06:35)
[2018-08-25] MEDS ORDERED: LIDOCAINE 2% (SDV) 5 ML INJ (07:00)
[2018-08-25] MEDS ORDERED: PROPOFOL 200 MG INJ (07:00)
[2018-08-25] MEDS: POLYETHYLENE GLYCOL 17 GM PACKET PO ×2 (09:00→20:38)
[2018-08-25] MEDS: VITAMIN B COMPLEX/VIT C CAP PO (09:40)
[2018-08-25] MEDS: MULTIVIT/CA CARB/B CMPLX/FA TAB PO (09:41)
[2018-08-25] MEDS: ASPIRIN 81 MG TAB PO (09:41)
[2018-08-25] MEDS: CLOPIDOGREL 75 MG TAB PO (09:41)
[2018-08-25] MEDS: ZINC SULFATE 220 MG CAP PO (09:41)
[2018-08-25] MEDS: BALSAM PERU/CASTOR OIL 60 GM TUBE TOP ×2 (09:42→20:58)
[2018-08-25] MEDS: FOLIC ACID 1 MG TAB PO (09:46)
[2018-08-25] MEDS ORDERED: ALBUTEROL 0.083% (NEB) 2.5 MG/3 ML AMP HHN (14:30)
[2018-08-25] MEDS ORDERED: HYDROmorphONE 1 MG/5 ML IV SYRINGE IV (14:30)
[2018-08-25] MEDS ORDERED: ONDANSETRON 4 MG INJ IV (14:30)
[2018-08-25] MEDS ORDERED: FENTAnyl 50 MCG/ML VIAL IV (14:30)
[2018-08-25] MEDS ORDERED: PROPOFOL 20 ML (14:53)
[2018-08-25] MEDS ORDERED: FENTAnyl 50 MCG/ML VIAL (15:11)
[2018-08-25] MEDS ORDERED: HYDROCODONE/APAP (5/325) TAB PO (16:00)
[2018-08-25] MEDS: hydrALAzine 20 MG INJ IV (16:57)
[2018-08-25] MEDS: ATORVASTATIN 80 MG TAB PO (20:38)
== END 2018-08-25 21:05 | DRG 981 ==
LOC: E/R 15:58 → 6WM 17:31
PROC: 0KBP0ZZ Excision of Left Hip Muscle, Open Approach (ICD-10-PCS; principal; 2018-08-24 08:14)
PROC: 0KBN0ZZ Excision of Right Hip Muscle, Open Approach (ICD-10-PCS; 2018-08-24 08:14)
PROC: 0JPT0XZ Removal of Tunneled Vascular Access Device from Trunk Subcutaneous Tissue and Fascia, Open Approach (ICD-10-PCS; 2018-08-24 08:14)
PROC: 5A1D70Z Performance of Urinary Filtration, Intermittent, Less than 6 Hours Per Day (ICD-10-PCS; 2018-08-24 08:14)
PROC: 05HM33Z Insertion of Infusion Device into Right Internal Jugular Vein, Percutaneous Approach (ICD-10-PCS; 2018-08-24 08:14)
PROC: 30233N1 Transfusion of Nonautologous Red Blood Cells into Peripheral Vein, Percutaneous Approach (ICD-10-PCS; 2018-08-24 08:14)
DX: T80.211A Bloodstream infection due to central venous catheter, initial encounter (principal); L89.154 Pressure ulcer of sacral region, stage 4; R65.20 Severe sepsis without septic shock; N18.6 End stage renal disease; G93.41 Metabolic encephalopathy; J96.01 Acute respiratory failure with hypoxia; I50.33 Acute on chronic diastolic (congestive) heart failure; A41.9 Sepsis, unspecified organism; N39.0 Urinary tract infection, site not specified; I13.2 Hypertensive heart and chronic kidney disease with heart failure and with stage 5 chronic kidney disease, or end stage renal disease; E87.1 Hypo-osmolality and hyponatremia; L97.429 Non-pressure chronic ulcer of left heel and midfoot with unspecified severity; L97.419 Non-pressure chronic ulcer of right heel and midfoot with unspecified severity; N17.9 Acute kidney failure, unspecified; L02.818 Cutaneous abscess of other sites; E11.22 Type 2 diabetes mellitus with diabetic chronic kidney disease; Z99.2 Dependence on renal dialysis; B96.4 Proteus (mirabilis) (morganii) as the cause of diseases classified elsewhere; D63.1 Anemia in chronic kidney disease; K29.70 Gastritis, unspecified, without bleeding; R53.81 Other malaise; H54.7 Unspecified visual loss; Z88.8 Allergy status to other drugs, medicaments and biological substances; Z91.011 Allergy to milk products; E83.9 Disorder of mineral metabolism, unspecified; E11.649 Type 2 diabetes mellitus with hypoglycemia without coma; D50.9 Iron deficiency anemia, unspecified; E11.621 Type 2 diabetes mellitus with foot ulcer; Z98.890 Other specified postprocedural states; Z89.422 Acquired absence of other left toe(s)
CPT/HCPCS: 36415; 36430; 36600; 70450; 71045; 80048; 80053; 80061; 81001; 82140; 82550; 82553; 82728; 82803; 82962; 83036; 83540; 83605; 83735; 84100; 84484; 85025; 85610; 85730; 86850; 86900; 86901; 86920; 87040; 87070; 87075; 87081; 87086; 87340; 88304; 90935; 92526; 92610; 93005; 93306; 93922; 96374; 96375; 97110; 97161; 97530; 99291-25

== ENCOUNTER 2018-09-07 06:46 | Inpatient (IN) | payer MEDICARE, OTHER ==
[2018-09-07] MEDS: VANCOMYCIN 1 GM (PMX) 250 ML IVPB (06:50)
[2018-09-07] MEDS ORDERED: NORepinephrine 8MG/250 ML (PMX 250 ML (06:54)
[2018-09-07] MEDS ORDERED: ROCURONIUM 50 MG INJ (07:00)
[2018-09-07] MEDS ORDERED: EPINEPHrine 0.1 MG/ML SYG (07:00)
[2018-09-07] MEDS ORDERED: NA BICARBONATE 8.4% 50 ML SYG (07:00)
[2018-09-07] MEDS: SODIUM CHLORIDE 0.9% 1L BAG IV* (07:53)
[2018-09-07] MEDS: NORepinephrine 8MG/250 ML (PMX 250 ML IV ×2 (07:56→23:14)
[2018-09-07] MEDS: CEFEPIME 2GM/50 ML (PMX) 50 ML IVPB (07:59)
[2018-09-07] MEDS: PROPOFOL 100 ML IV (08:04)
[2018-09-07 08:10] LABS: WHITE BLOOD COUNT 27.9 10^3/ul (4.8-10.8)
[2018-09-07 08:10] LABS: ABNORMAL IP MESSAGE 1; HEMATOCRIT 28.5 % (37.0-47.0); HEMOGLOBIN 8.2 g/dl (12.0-16.0); MEAN CORPUSCULAR HGB CONC 28.8 g/dl (32.0-37.0); MEAN CORPUSCULAR VOLUME 100.7 fl (82.0-101.0); NUCLEATED RED BLOOD CELLS% 1.7 /100WBC (0.0-0.0); PLATELET COUNT 317 10^3/UL (140-415); RED BLOOD COUNT 2.83 10^6/ul (4.20-5.40); RED CELL DISTRIBUTION WIDTH 23.1 % (11.5-14.5)
[2018-09-07 08:12] LABS: ADD MAN DIFF? YES; POSITIVE DIFF @See below
[2018-09-07 08:26] LABS: ANION GAP 9 (5-13); BLOOD UREA NITROGEN 39 mg/dl (7-20); CALCIUM 8.7 mg/dl (8.4-10.2); CARBON DIOXIDE 26 mmol/L (21-31); CHLORIDE 103 mmol/L (97-110); CREATININE 3.36 mg/dl (0.44-1.00); GLUCOSE 207 mg/dl (70-220); POTASSIUM 3.8 mmol/L (3.5-5.1); SODIUM 138 mmol/L (135-144)
[2018-09-07 08:30] LABS: INR 1.27; PT RATIO 1.3
[2018-09-07 08:31] LABS: PARTIAL THROMBOPLASTIN TIME 46.3 Sec (23.0-35.0)
[2018-09-07 08:36] LABS: ADD UMIC YES; UR ASCORBIC ACID 20 mg/dL (NEGATIVE); UR BACTERIA MANY /HPF (NONE SEEN); UR BILIRUBIN (Dip) NEGATIVE (NEGATIVE); UR BLOOD (Dip) 1+ mg/dL (NEGATIVE); UR CLARITY TURBID (CLEAR); UR COLOR YELLOW (YELLOW); UR GLUCOSE (Dip) NEGATIVE (NEGATIVE); UR KETONES (Dip) NEGATIVE (NEGATIVE); UR LEUKOCYTE ESTERASE (Dip) 1+ Leu/ul (NEGATIVE); UR NITRITE (Dip) NEGATIVE (NEGATIVE); UR RBC 27 /HPF (0-5); UR SPECIFIC GRAVITY (Dip) 1.021 (1.003-1.030); UR SQUAMOUS EPITHELIAL CELL FEW /HPF (FEW); UR TOTAL PROTEIN (Dip) 2+ mg/dl (NEGATIVE); UR UROBILINOGEN (Dip) NEGATIVE (NEGATIVE); UR WBC > 182 /HPF (0-5)
[2018-09-07 08:37] LABS: TROPONIN-I 0.027 ng/ml (0.000-0.120)
[2018-09-07 08:50] LABS: AADO2 Arterial 423.4 mmHg (7.0-24.0); Allen Test ACCEPTAB; Arterial Blood Gas Oxygen Sat 99.9 mmHG (95.0-100.0); Arterial COHb 1.2 % (0.0-3.0); Arterial Fraction of Oxyhgb 98.4 % (93.0-99.0); Arterial MetHb 0.3 % (0.0-1.5); Arterial pCO2 42.8 mmhg (35-45); MODE VENT - AC; Site Left Radial
[2018-09-07] MEDS ORDERED: VANCOMYCIN IV PER PHARMACY XX (09:00)
[2018-09-07] MEDS ORDERED: ONDANSETRON 4 MG INJ IV (09:00)
[2018-09-07] MEDS ORDERED: DOCUSATE SODIUM 100 MG CAP PO (09:00)
[2018-09-07] MEDS ORDERED: ACETAMINOPHEN 650MG/20.3ML CUP PO (09:00)
[2018-09-07] MEDS ORDERED: HEPARIN 5,000 UNIT/1 ML VIAL SC ×2 (09:00→13:24)
[2018-09-07 09:55] LABS: ANISOCYTOSIS 1+ (0-0); BAND NEUTROPHILS #M 6.1 10^3/ul (0.0-0.6); BAND NEUTROPHILS % (M) 22 % (0-4); BURR CELLS 2+ (0-0); ERYTHROBLAST% (NRBC) (M) 5 % (0-0); LYMPHOCYTES #M 2.7 10^3/ul (0.8-2.9); LYMPHOCYTES % (M) 10 % (15-51); MONOCYTE #M 0.8 10^3/ul (0.3-0.9); MONOCYTES % (M) 3 % (0-11); PLATELET ESTIMATE NORMAL; POIKILOCYTOSIS 2+ (0-0); POLYCHROMASIA 1+ (0-0); SEG NEUT #M 19.8 10^3/ul (1.6-7.5); SEGMENTED NEUTROPHILS (M) % 65 % (39-77); SMUDGE%M 8 % (0-0)
[2018-09-07] MEDS: PIPER-TAZO 2.25 GM (PMX) 50 ML IVPB (10:15)
[2018-09-07] MEDS: SOD CHLORIDE 0.9% 1,000 ML IV (10:44)
[2018-09-07 11:53] LABS: LACTIC ACID 2.4 mmol/L (0.5-2.0)
[2018-09-07] MEDS: LINEZOLID 600 MG/D5W (PMX) 300 ML IVPB ×2 (12:41→22:08)
[2018-09-07] MEDS ORDERED: PENDING SANTYL ORDER FOR WOUND CARE XX (13:00)
[2018-09-07] MEDS ORDERED: COLLAGENASE 5 GM (UD JAR) TOP (15:39)
[2018-09-07] MEDS: MEROPENEM 500MG/50 ML (PMX) 50 ML IVPB ×2 (15:41→23:15)
[2018-09-07] MEDS: COLLAGENASE 5 GM (UD JAR) TOP ×2 (15:41→20:18)
[2018-09-07] MEDS: ARTIFICIAL TEARS 15 ML OPH BOTH EYES ×2 (15:41→22:19)
[2018-09-07] MEDS: ALTEPLASE (CATHFLO) 2 MG INJ CATHETER (15:42)
[2018-09-07 15:44] LABS: CREATINE KINASE 21 IU/L (23-200)
[2018-09-07 15:57] LABS: CK INDEX 7.7; CK-MB 1.62 ng/ml (0.0-2.4); TROPONIN-I 0.087 ng/ml (0.000-0.120)
[2018-09-07] MEDS: morphine SULFATE/PF (2 MG/2 ML) SYG IV (16:44)
[2018-09-07] MEDS ORDERED: DEXTROSE 50% 50 ML SYRINGE IV ×2 (18:30)
[2018-09-07] MEDS: ACCU-CHEK XX ×6 (20:00→23:58)
[2018-09-07] MEDS: FERROUS SULFATE (EC) 325 MG TAB PO (20:09)
[2018-09-07] MEDS: ATORVASTATIN 80 MG TAB PO (20:09)
[2018-09-07] MEDS: CALCIUM/VITAMIN D (500/200) TAB PO (20:09)
[2018-09-07] MEDS: INSULIN HUMAN REGULAR 100 UNIT in SOD CHLORIDE 0.9% 99 ML IV (20:17)
[2018-09-07] MEDS ORDERED: NON-FORMULARY/PATIENT OWN MED (Amino Acids/Protein Hydrolys (Pro-Stat Liquid) 30 ML) PO (21:00)
[2018-09-08] MEDS: ACCU-CHEK XX ×15 (01:18→14:56)
[2018-09-08 05:08] LABS: WHITE BLOOD COUNT 26.9 10^3/ul (4.8-10.8)
[2018-09-08 05:08] LABS: ABNORMAL IP MESSAGE 1; HEMATOCRIT 26.5 % (37.0-47.0); HEMOGLOBIN 7.7 g/dl (12.0-16.0); MEAN CORPUSCULAR HEMOGLOBIN 28.5 pg (29.0-33.0); MEAN CORPUSCULAR HGB CONC 29.1 g/dl (32.0-37.0); MEAN CORPUSCULAR VOLUME 98.1 fl (82.0-101.0); PLATELET COUNT 294 10^3/UL (140-415); RED CELL DISTRIBUTION WIDTH 23.2 % (11.5-14.5)
[2018-09-08] MEDS: PANTOPRAZOLE 40 MG INJ IV (05:15)
[2018-09-08 05:18] LABS: ADD MAN DIFF? YES; POSITIVE DIFF @See below
[2018-09-08 05:31] LABS: ANION GAP 8 (5-13); BLOOD UREA NITROGEN 23 mg/dl (7-20); CALCIUM 7.7 mg/dl (8.4-10.2); CARBON DIOXIDE 28 mmol/L (21-31); CHLORIDE 101 mmol/L (97-110); CREATININE 1.93 mg/dl (0.44-1.00); GLUCOSE 108 mg/dl (70-220); POTASSIUM 4.3 mmol/L (3.5-5.1); SODIUM 137 mmol/L (135-144)
[2018-09-08 05:32] LABS: PHOSPHORUS 1.8 mg/dl (2.5-4.9)
[2018-09-08] MEDS: SOD CHLORIDE 0.9% 1,000 ML IV (06:39)
[2018-09-08] MEDS: LEVOTHYROXINE 50 MCG TAB PO (07:00)
[2018-09-08 07:38] LABS: ANISOCYTOSIS 3+ (0-0); BAND NEUTROPHILS #M 10.4 10^3/ul (0.0-0.6); BAND NEUTROPHILS % (M) 39 % (0-4); BURR CELLS 3+ (0-0); EOSINOPHILS % (M) 1 % (0-7); ERYTHROBLAST% (NRBC) (M) 1 % (0-0); LYMPHOCYTES #M 2.4 10^3/ul (0.8-2.9); LYMPHOCYTES % (M) 9 % (15-51); MONOCYTE #M 0.2 10^3/ul (0.3-0.9); MONOCYTES % (M) 1 % (0-11); OVALOCYTES 1+ (0-0); PLATELET ESTIMATE NORMAL; POIKILOCYTOSIS 3+ (0-0); POLYCHROMASIA 1+ (0-0); PROMYELOCYTES #M 0.2 10^3/ul (0-0); PROMYELOCYTES % (M) 1 % (0-0); SEGMENTED NEUTROPHILS (M) % 49 % (39-77); SMUDGE%M 2 % (0-0); TARGET CELLS 1+ (0-0)
[2018-09-08] MEDS: VITAMIN B COMPLEX/VIT C CAP PO (09:20)
[2018-09-08] MEDS: LINEZOLID 600 MG/D5W (PMX) 300 ML IVPB ×3 (09:20→21:36)
[2018-09-08] MEDS: ARTIFICIAL TEARS 15 ML OPH BOTH EYES ×3 (09:20→20:54)
[2018-09-08] MEDS: FERROUS SULFATE (EC) 325 MG TAB PO ×2 (09:20→20:55)
[2018-09-08] MEDS: ZINC SULFATE 220 MG CAP PO (09:20)
[2018-09-08] MEDS: FOLIC ACID 1 MG TAB PO (09:21)
[2018-09-08] MEDS: MULTIVIT/CA CARB/B CMPLX/FA TAB PO (09:21)
[2018-09-08] MEDS: ASPIRIN 81 MG TAB PO (09:21)
[2018-09-08] MEDS: CLOPIDOGREL 75 MG TAB PO (09:21)
[2018-09-08] MEDS: CHOLECALCIFEROL 1,000 UNIT TAB PO (09:21)
[2018-09-08] MEDS: POLYETHYLENE GLYCOL 17 GM PACKET PO (09:24)
[2018-09-08] MEDS ORDERED: morphine LIQ (10 MG/5 ML) CUP GTB (11:00)
[2018-09-08] MEDS: NEUTRA-PHOS 250 MG PACKET GTB ×2 (11:31→20:54)
[2018-09-08] MEDS: COLLAGENASE 5 GM (UD JAR) TOP ×2 (11:33→20:54)
[2018-09-08 12:52] LABS: LACTIC ACID 1.2 mmol/L (0.5-2.0)
[2018-09-08] MEDS: FLUCONAZOLE 100 MG/50 ML (PMX) 50 ML IVPB (14:11)
[2018-09-08] MEDS: INSULIN GLARGINE [LANTus] (100 UNITS/ML) SYG SC ×2 (15:30→21:35)
[2018-09-08] MEDS ORDERED: GLUCOSE GEL 15 GRAM TUBE PO ×2 (15:30)
[2018-09-08] MEDS ORDERED: GLUCOSE GEL 15 GRAM TUBE BUCCAL (15:30)
[2018-09-08] MEDS ORDERED: GLUCAGON 1 MG INJ IM (15:30)
[2018-09-08] MEDS: SODIUM PHOSPHATE 15 MMOL in SOD CHLORIDE 0.9% 250 ML IVPB (15:31)
[2018-09-08] MEDS: CALCIUM/VITAMIN D (500/200) TAB PO (17:07)
[2018-09-08] MEDS: MEROPENEM 500MG/50 ML (PMX) 50 ML IVPB (20:54)
[2018-09-08] MEDS: ATORVASTATIN 80 MG TAB PO (20:54)
[2018-09-08] MEDS ORDERED: INSULIN GLARGINE [LANTus] (100 UNITS/ML) SYG SC (21:00)
[2018-09-08] MEDS: PROPOFOL 100 ML IV (21:36)
[2018-09-09] MEDS: SOD CHLORIDE 0.9% 1,000 ML IV ×3 (00:53→20:53)
[2018-09-09] MEDS: NORepinephrine 8MG/250 ML (PMX 250 ML IV ×2 (04:17→17:29)
[2018-09-09 05:34] LABS: MAGNESIUM 1.8 mg/dl (1.7-2.5)
[2018-09-09 05:34] LABS: PHOSPHORUS 3.8 mg/dl (2.5-4.9)
[2018-09-09] MEDS: LANSOPRAZOLE 30 MG CAP GTB (05:49)
[2018-09-09] MEDS: LEVOTHYROXINE 50 MCG TAB PO (06:01)
[2018-09-09 06:41] LABS: ABNORMAL IP MESSAGE 1; HEMATOCRIT 24.3 % (37.0-47.0); HEMOGLOBIN 7.1 g/dl (12.0-16.0); MEAN CORPUSCULAR HEMOGLOBIN 28.7 pg (29.0-33.0); MEAN CORPUSCULAR HGB CONC 29.2 g/dl (32.0-37.0); MEAN CORPUSCULAR VOLUME 98.4 fl (82.0-101.0); MEAN PLATELET VOLUME 9.6 fl (7.4-10.4); NUCLEATED RED BLOOD CELLS% 0.3 /100WBC (0.0-0.0); PLATELET COUNT 244 10^3/UL (140-415); RED BLOOD COUNT 2.47 10^6/ul (4.20-5.40); RED CELL DISTRIBUTION WIDTH 23.1 % (11.5-14.5)
[2018-09-09 06:41] LABS: WHITE BLOOD COUNT 27.4 10^3/ul (4.8-10.8)
[2018-09-09 06:51] LABS: ADD MAN DIFF? YES; POSITIVE DIFF @See below
[2018-09-09 06:54] LABS: ANION GAP 6 (5-13); BLOOD UREA NITROGEN 29 mg/dl (7-20); CALCIUM 6.9 mg/dl (8.4-10.2); CARBON DIOXIDE 28 mmol/L (21-31); CHLORIDE 102 mmol/L (97-110); CREATININE 2.35 mg/dl (0.44-1.00); GLUCOSE 130 mg/dl (70-220); POTASSIUM 4.1 mmol/L (3.5-5.1); SODIUM 136 mmol/L (135-144)
[2018-09-09] MEDS: FERROUS SULFATE (EC) 325 MG TAB PO ×2 (09:00→21:52)
[2018-09-09 09:09] LABS: ANISOCYTOSIS 3+ (0-0); BAND NEUTROPHILS #M 7.9 10^3/ul (0.0-0.6); BAND NEUTROPHILS % (M) 29 % (0-4); BURR CELLS 1+ (0-0); LYMPHOCYTES #M 1.9 10^3/ul (0.8-2.9); LYMPHOCYTES % (M) 7 % (15-51); MONOCYTE #M 0.2 10^3/ul (0.3-0.9); MONOCYTES % (M) 1 % (0-11); PLATELET ESTIMATE NORMAL; POIKILOCYTOSIS 2+ (0-0); POLYCHROMASIA 3+ (0-0); SEG NEUT #M 19.4 10^3/ul (1.6-7.5); SEGMENTED NEUTROPHILS (M) % 63 % (39-77); SMUDGE%M 6 % (0-0)
[2018-09-09] MEDS: PROPOFOL 100 ML IV ×2 (09:30→21:30)
[2018-09-09] MEDS: VITAMIN B COMPLEX/VIT C CAP PO (09:54)
[2018-09-09] MEDS: CHOLECALCIFEROL 1,000 UNIT TAB PO (09:54)
[2018-09-09] MEDS: ASPIRIN 81 MG TAB PO (09:54)
[2018-09-09] MEDS: MULTIVIT/CA CARB/B CMPLX/FA TAB PO (09:54)
[2018-09-09] MEDS: POLYETHYLENE GLYCOL 17 GM PACKET PO (09:54)
[2018-09-09] MEDS: LINEZOLID 600 MG/D5W (PMX) 300 ML IVPB ×2 (09:54→21:53)
[2018-09-09] MEDS: CLOPIDOGREL 75 MG TAB PO (09:54)
[2018-09-09] MEDS: NEUTRA-PHOS 250 MG PACKET GTB ×2 (09:54→21:52)
[2018-09-09] MEDS: ZINC SULFATE 220 MG CAP PO (09:54)
[2018-09-09] MEDS: FOLIC ACID 1 MG TAB PO (09:54)
[2018-09-09] MEDS: COLLAGENASE 5 GM (UD JAR) TOP ×2 (09:55→21:52)
[2018-09-09] MEDS: ARTIFICIAL TEARS 15 ML OPH BOTH EYES ×3 (09:58→21:53)
[2018-09-09] MEDS: BALSAM PERU/CASTOR OIL 60 GM TUBE TOP ×2 (14:00→21:52)
[2018-09-09] MEDS: ALTEPLASE (CATHFLO) 2 MG INJ CATHETER (15:40)
[2018-09-09] MEDS: FLUCONAZOLE 100 MG/50 ML (PMX) 50 ML IVPB (16:02)
[2018-09-09] MEDS: CALCIUM/VITAMIN D (500/200) TAB PO (17:29)
[2018-09-09] MEDS: INSULIN GLARGINE [LANTus] (100 UNITS/ML) SYG SC (21:00)
[2018-09-09] MEDS: MEROPENEM 500MG/50 ML (PMX) 50 ML IVPB (21:52)
[2018-09-09] MEDS: ATORVASTATIN 80 MG TAB PO (21:53)
[2018-09-09] MEDS: DEXTROSE 50% 50 ML SYRINGE IV (22:18)
[2018-09-10] MEDS: LANSOPRAZOLE 30 MG CAP GTB (05:26)
[2018-09-10 05:30] LABS: ABNORMAL IP MESSAGE 1; HEMATOCRIT 23.8 % (37.0-47.0); MEAN CORPUSCULAR HEMOGLOBIN 28.3 pg (29.0-33.0); MEAN CORPUSCULAR VOLUME 97.5 fl (82.0-101.0); MEAN PLATELET VOLUME 9.5 fl (7.4-10.4); NUCLEATED RED BLOOD CELLS% 0.2 /100WBC (0.0-0.0); PLATELET COUNT 207 10^3/UL (140-415); RED BLOOD COUNT 2.44 10^6/ul (4.20-5.40); RED CELL DISTRIBUTION WIDTH 22.7 % (11.5-14.5)
[2018-09-10 05:30] LABS: WHITE BLOOD COUNT 25.2 10^3/ul (4.8-10.8)
[2018-09-10 05:54] LABS: ANION GAP 12 (5-13); BLOOD UREA NITROGEN 35 mg/dl (7-20); CALCIUM 6.2 mg/dl (8.4-10.2); CARBON DIOXIDE 22 mmol/L (21-31); CHLORIDE 100 mmol/L (97-110); CREATININE 2.41 mg/dl (0.44-1.00); GLUCOSE 90 mg/dl (70-220); POTASSIUM 4.1 mmol/L (3.5-5.1); SODIUM 134 mmol/L (135-144)
[2018-09-10] MEDS: SOD CHLORIDE 0.9% 1,000 ML IV ×2 (06:23→19:55)
[2018-09-10 06:45] LABS: HEMOGLOBIN 6.9 g/dl (12.0-16.0); POSITIVE DIFF @See below
[2018-09-10 06:46] LABS: ADD MAN DIFF? YES
[2018-09-10] MEDS: SOD CHLORIDE 0.9% 250 ML IV* (07:16)
[2018-09-10] MEDS: FOLIC ACID 1 MG TAB PO (08:50)
[2018-09-10] MEDS: ZINC SULFATE 220 MG CAP PO (08:50)
[2018-09-10] MEDS: FERROUS SULFATE (EC) 325 MG TAB PO ×2 (08:50→21:09)
[2018-09-10] MEDS: CHOLECALCIFEROL 1,000 UNIT TAB PO (08:50)
[2018-09-10] MEDS: ASPIRIN 81 MG TAB PO (08:51)
[2018-09-10] MEDS: LEVOTHYROXINE 50 MCG TAB PO (08:51)
[2018-09-10] MEDS: NEUTRA-PHOS 250 MG PACKET GTB ×2 (08:51→21:09)
[2018-09-10] MEDS: VITAMIN B COMPLEX/VIT C CAP PO (08:51)
[2018-09-10] MEDS: CLOPIDOGREL 75 MG TAB PO (08:51)
[2018-09-10] MEDS: MULTIVIT/CA CARB/B CMPLX/FA TAB PO (08:51)
[2018-09-10] MEDS: POLYETHYLENE GLYCOL 17 GM PACKET PO (08:51)
[2018-09-10] MEDS: PROPOFOL 100 ML IV ×2 (08:52→21:30)
[2018-09-10] MEDS: LINEZOLID 600 MG/D5W (PMX) 300 ML IVPB ×2 (08:52→21:08)
[2018-09-10] MEDS: COLLAGENASE 5 GM (UD JAR) TOP ×2 (08:56→21:08)
[2018-09-10] MEDS: BALSAM PERU/CASTOR OIL 60 GM TUBE TOP ×2 (08:57→21:09)
[2018-09-10] MEDS: ARTIFICIAL TEARS 15 ML OPH BOTH EYES ×3 (08:57→21:10)
[2018-09-10 09:10] LABS: ANISOCYTOSIS 2+ (0-0); BAND NEUTROPHILS % (M) 8 % (0-4); BURR CELLS 1+ (0-0); HYPOCHROMASIA 2+ (0-0); LYMPHOCYTES % (M) 4 % (15-51); MONOCYTE #M 0.2 10^3/ul (0.3-0.9); MONOCYTES % (M) 1 % (0-11); OVALOCYTES 1+ (0-0); PLATELET ESTIMATE NORMAL; POIKILOCYTOSIS 1+ (0-0); POLYCHROMASIA 3+ (0-0); SEG NEUT #M 22.4 10^3/ul (1.6-7.5); SEGMENTED NEUTROPHILS (M) % 87 % (39-77)
[2018-09-10 11:40] LABS: IMMEDIATE SPIN CROSSMATCH 1 2
[2018-09-10] MEDS ORDERED: AMIKACIN IV PER PHARMACY XX (15:00)
[2018-09-10] MEDS: FLUCONAZOLE 100 MG/50 ML (PMX) 50 ML IVPB (16:41)
[2018-09-10] MEDS: CALCIUM/VITAMIN D (500/200) TAB PO (17:58)
[2018-09-10] MEDS: AMIKACIN IVPB (19:53)
[2018-09-10] MEDS: SOD CHLORIDE 0.9% IVPB (19:53)
[2018-09-10] MEDS: ATORVASTATIN 80 MG TAB PO (21:08)
[2018-09-10] MEDS: INSULIN GLARGINE [LANTus] (100 UNITS/ML) SYG SC (21:30)
[2018-09-11] MEDS: NORepinephrine 8MG/250 ML (PMX 250 ML IV (00:37)
[2018-09-11 05:09] LABS: ADD MAN DIFF? NO
[2018-09-11 05:12] LABS: WHITE BLOOD COUNT 26.5 10^3/ul (4.8-10.8)
[2018-09-11 05:12] LABS: ABNORMAL IP MESSAGE 1; BASOPHIL # 0.1 10^3/ul (0.0-0.1); BASOPHILS % 0.2 % (0.0-2.0); EOSINOPHILS # 0.2 10^3/ul (0.0-0.5); EOSINOPHILS % 0.9 % (0.0-7.0); HEMATOCRIT 34.4 % (37.0-47.0); HEMOGLOBIN 10.8 g/dl (12.0-16.0); LYMPHOCYTES # 3.2 10^3/ul (0.8-2.9); MEAN CORPUSCULAR HGB CONC 31.4 g/dl (32.0-37.0); MEAN CORPUSCULAR VOLUME 92.5 fl (82.0-101.0); MEAN PLATELET VOLUME 10.3 fl (7.4-10.4); MONOCYTE # 0.6 10^3/ul (0.3-0.9); MONOCYTES % 2.2 % (0.0-11.0); NEUTROPHIL # 22.2 10^3/ul (1.6-7.5); NEUTROPHILS % 83.8 % (39.0-77.0); NUCLEATED RED BLOOD CELLS% 0.2 /100WBC (0.0-0.0); PLATELET COUNT 201 10^3/UL (140-415); RED BLOOD COUNT 3.72 10^6/ul (4.20-5.40); RED CELL DISTRIBUTION WIDTH 21.2 % (11.5-14.5)
[2018-09-11 05:19] LABS: POSITIVE DIFF @See below
[2018-09-11 05:27] LABS: LACTIC ACID 1.7 mmol/L (0.5-2.0)
[2018-09-11 05:34] LABS: ANION GAP 8 (5-13); BLOOD UREA NITROGEN 19 mg/dl (7-20); CALCIUM 7.1 mg/dl (8.4-10.2); CARBON DIOXIDE 27 mmol/L (21-31); CHLORIDE 101 mmol/L (97-110); CREATININE 1.74 mg/dl (0.44-1.00); POTASSIUM 3.5 mmol/L (3.5-5.1); SODIUM 136 mmol/L (135-144)
[2018-09-11 05:44] LABS: GLUCOSE 26 mg/dl (70-220)
[2018-09-11] MEDS: DEXTROSE 50% 50 ML SYRINGE IV ×2 (05:49→12:06)
[2018-09-11] MEDS: LANSOPRAZOLE 30 MG CAP GTB (05:52)
[2018-09-11] MEDS: DEXTROSE 5%-0.9% NACL 1,000 ML IV ×2 (06:26→21:44)
[2018-09-11] MEDS: COLLAGENASE 5 GM (UD JAR) TOP ×2 (08:34→20:36)
[2018-09-11] MEDS: CHOLECALCIFEROL 1,000 UNIT TAB PO (08:35)
[2018-09-11] MEDS: NEUTRA-PHOS 250 MG PACKET GTB ×2 (08:35→20:36)
[2018-09-11] MEDS: CLOPIDOGREL 75 MG TAB PO (08:35)
[2018-09-11] MEDS: FOLIC ACID 1 MG TAB PO (08:35)
[2018-09-11] MEDS: MULTIVIT/CA CARB/B CMPLX/FA TAB PO (08:35)
[2018-09-11] MEDS: ZINC SULFATE 220 MG CAP PO (08:36)
[2018-09-11] MEDS: LEVOTHYROXINE 50 MCG TAB PO (08:36)
[2018-09-11] MEDS: ARTIFICIAL TEARS 15 ML OPH BOTH EYES ×3 (08:36→20:36)
[2018-09-11] MEDS: POLYETHYLENE GLYCOL 17 GM PACKET PO (08:36)
[2018-09-11] MEDS: LINEZOLID 600 MG/D5W (PMX) 300 ML IVPB ×2 (08:36→20:36)
[2018-09-11] MEDS: VITAMIN B COMPLEX/VIT C CAP PO (08:36)
[2018-09-11] MEDS: ASPIRIN 81 MG TAB PO (08:36)
[2018-09-11] MEDS: BALSAM PERU/CASTOR OIL 60 GM TUBE TOP ×2 (08:37→20:36)
[2018-09-11] MEDS: PROPOFOL 100 ML IV ×2 (08:37→21:30)
[2018-09-11] MEDS: FERROUS SULFATE (EC) 325 MG TAB PO (09:00)
[2018-09-11 09:06] LABS: AADO2 Arterial 82.9 mmHg (7.0-24.0); Allen Test ACCEPTAB; Arterial Base Excess 1.4 mmol/L (-3.0-3); Arterial Blood Gas Oxygen Sat 96.7 mmHG (95.0-100.0); Arterial COHb 0.6 % (0.0-3.0); Arterial Fraction of Oxyhgb 95.8 % (93.0-99.0); Arterial HCO3 25.2 mmol/L (22.0-26.0); Arterial MetHb 0.3 % (0.0-1.5); Arterial pCO2 36.9 mmhg (35-45); MODE VENT - AC; Site Right Radial
[2018-09-11] MEDS: FERROUS SULFATE 60 MG/ML 5ML CUP GTB ×2 (12:00→20:35)
[2018-09-11] MEDS ORDERED: ACCU-CHEK XX (13:00)
[2018-09-11] MEDS: ACCU-CHEK XX ×3 (13:12→21:03)
[2018-09-11] MEDS: FLUCONAZOLE 100 MG/50 ML (PMX) 50 ML IVPB (14:31)
[2018-09-11] MEDS ORDERED: SOD CHLORIDE 0.9% IVPB (18:00)
[2018-09-11] MEDS ORDERED: AMIKACIN IVPB (18:00)
[2018-09-11 22:40] LABS: HEPATITIS B SURFACE ANTIGEN NEGATIVE (NEGATIVE)
[2018-09-12] MEDS: ACCU-CHEK XX ×4 (00:43→15:14)
[2018-09-12 05:17] LABS: ADD MAN DIFF? NO
[2018-09-12 05:22] LABS: WHITE BLOOD COUNT 19.3 10^3/ul (4.8-10.8)
[2018-09-12 05:23] LABS: BASOPHIL # 0.1 10^3/ul (0.0-0.1); BASOPHILS % 0.4 % (0.0-2.0); EOSINOPHILS # 0.3 10^3/ul (0.0-0.5); EOSINOPHILS % 1.5 % (0.0-7.0); HEMATOCRIT 33.8 % (37.0-47.0); HEMOGLOBIN 10.3 g/dl (12.0-16.0); LYMPHOCYTES # 1.7 10^3/ul (0.8-2.9); LYMPHOCYTES % 8.7 % (15.0-51.0); MEAN CORPUSCULAR HEMOGLOBIN 28.6 pg (29.0-33.0); MEAN CORPUSCULAR HGB CONC 30.5 g/dl (32.0-37.0); MEAN CORPUSCULAR VOLUME 93.9 fl (82.0-101.0); MEAN PLATELET VOLUME 10.2 fl (7.4-10.4); MONOCYTE # 0.4 10^3/ul (0.3-0.9); NEUTROPHIL # 16.5 10^3/ul (1.6-7.5); NEUTROPHILS % 85.4 % (39.0-77.0); PLATELET COUNT 193 10^3/UL (140-415); RED CELL DISTRIBUTION WIDTH 20.5 % (11.5-14.5)
[2018-09-12 05:40] LABS: ANION GAP 10 (5-13); BLOOD UREA NITROGEN 21 mg/dl (7-20); CALCIUM 6.4 mg/dl (8.4-10.2); CARBON DIOXIDE 23 mmol/L (21-31); CHLORIDE 101 mmol/L (97-110); CREATININE 2.07 mg/dl (0.44-1.00); GLUCOSE 123 mg/dl (70-220); SODIUM 134 mmol/L (135-144)
[2018-09-12 05:54] LABS: POTASSIUM 3.9 mmol/L (3.5-5.1)
[2018-09-12] MEDS: LANSOPRAZOLE 30 MG CAP GTB (06:49)
[2018-09-12] MEDS: LEVOTHYROXINE 50 MCG TAB PO (06:49)
[2018-09-12] MEDS: FERROUS SULFATE 60 MG/ML 5ML CUP GTB (09:18)
[2018-09-12] MEDS: POLYETHYLENE GLYCOL 17 GM PACKET PO ×2 (09:18→09:25)
[2018-09-12] MEDS: MULTIVIT/CA CARB/B CMPLX/FA TAB PO (09:18)
[2018-09-12] MEDS: LINEZOLID 600 MG/D5W (PMX) 300 ML IVPB (09:19)
[2018-09-12] MEDS: VITAMIN B COMPLEX/VIT C CAP PO (09:20)
[2018-09-12] MEDS: ARTIFICIAL TEARS 15 ML OPH BOTH EYES ×3 (09:20→20:43)
[2018-09-12] MEDS: COLLAGENASE 5 GM (UD JAR) TOP (09:20)
[2018-09-12] MEDS: FOLIC ACID 1 MG TAB PO (09:20)
[2018-09-12] MEDS: BALSAM PERU/CASTOR OIL 60 GM TUBE TOP (09:20)
[2018-09-12] MEDS: ZINC SULFATE 220 MG CAP PO (09:21)
[2018-09-12] MEDS: CLOPIDOGREL 75 MG TAB PO (09:21)
[2018-09-12] MEDS: NEUTRA-PHOS 250 MG PACKET GTB (09:21)
[2018-09-12] MEDS: PROPOFOL 100 ML IV (09:25)
[2018-09-12] MEDS: FLUCONAZOLE 100 MG/50 ML (PMX) 50 ML IVPB (15:11)
[2018-09-12] MEDS: morphine (DRIP) 100 MG/100 ML 100 ML IV (17:56)
[2018-09-12] MEDS: LORAZEPAM 4 MG/ML VIAL IV (20:43)
[2018-09-13] MEDS: morphine (DRIP) 100 MG/100 ML 100 ML IV ×2 (05:19→11:43)
[2018-09-13] MEDS: ARTIFICIAL TEARS 15 ML OPH BOTH EYES ×2 (09:15→14:16)
[2018-09-13] MEDS: LORAZEPAM 4 MG/ML VIAL IV (11:44)
== END 2018-09-13 18:05 | disposition expired | DRG 870 ==
LOC: PP2 09-13 00:10 → E/R 06:46 → ICU 07:51
PROC: 5A1955Z Respiratory Ventilation, Greater than 96 Consecutive Hours (ICD-10-PCS; principal; 2018-09-07)
PROC: 0BH17EZ Insertion of Endotracheal Airway into Trachea, Via Natural or Artificial Opening (ICD-10-PCS; 2018-09-07)
PROC: 5A12012 Performance of Cardiac Output, Single, Manual (ICD-10-PCS; 2018-09-07)
PROC: 5A1D70Z Performance of Urinary Filtration, Intermittent, Less than 6 Hours Per Day (ICD-10-PCS; 2018-09-10)
PROC: 30233N1 Transfusion of Nonautologous Red Blood Cells into Peripheral Vein, Percutaneous Approach (ICD-10-PCS; 2018-09-10)
DX: A41.9 Sepsis, unspecified organism (principal); J96.01 Acute respiratory failure with hypoxia; L89.154 Pressure ulcer of sacral region, stage 4; R65.21 Severe sepsis with septic shock; N18.6 End stage renal disease; J18.9 Pneumonia, unspecified organism; R53.2 Functional quadriplegia; G93.41 Metabolic encephalopathy; I12.0 Hypertensive chronic kidney disease with stage 5 chronic kidney disease or end stage renal disease; B37.49 Other urogenital candidiasis; G93.1 Anoxic brain damage, not elsewhere classified; Z99.2 Dependence on renal dialysis; Z66 Do not resuscitate; E11.22 Type 2 diabetes mellitus with diabetic chronic kidney disease; E83.39 Other disorders of phosphorus metabolism; E11.51 Type 2 diabetes mellitus with diabetic peripheral angiopathy without gangrene; I46.9 Cardiac arrest, cause unspecified; D63.1 Anemia in chronic kidney disease; E03.9 Hypothyroidism, unspecified; R53.81 Other malaise; M62.50 Muscle wasting and atrophy, not elsewhere classified, unspecified site; Z51.5 Encounter for palliative care
CPT/HCPCS: 31500; 36415; 36430; 36600; 70450; 71045; 80048; 81001; 82550; 82553; 82803; 82962; 83605; 83735; 84100; 84443; 84484; 85025; 85610; 85730; 86850; 86900; 86901; 86920; 87040; 87070; 87081; 87086; 87340; 90935; 92950; 93005; 94002; 94003; 94660; 94770; 96374; 99291-25